=== PATIENT | female | born 1965 | race Caucasian/White ===

== ENCOUNTER 2017-02-09 15:21 | Observation (INO) | payer BC, OTHER ==
[2017-02-09] MEDS ORDERED: ASPIRIN 81 MG CHEW PO STA (16:07)
[2017-02-09] MEDS ORDERED: NITROGLYCERIN OINT 1 INCH/GM PACKET TOPICAL STA (16:07)
--- NOTE | 2017-02-09 16:10 | ED ---
General Adult HPI - General Chief complaint: Chest Pain Stated complaint: chest pain Time Seen by Provider: 02/09/17 15:37 Source: patient, RN notes reviewed Mode of arrival: ambulatory Limitations: no limitations - History of Present Illness Initial comments: Patient is a pleasant 51-year-old female presenting to the emergency department complaining of chest discomfort. Onset was late this morning. Symptoms have been intermittent. Symptoms last for a few minutes. Patient symptom-free at this time. He should states discomfort feels like a pinch. No associated diaphoresis or dyspnea. Patient has been slightly nauseated throughout the day. Patient has had previous heart attack with out similar symptoms. No cough or fever - Related Data Home Medications Medication Instructions Recorded Confirmed Aspirin 81 mg PO DAILY 04/01/15 02/09/17 Fenofibrate [Tricor] 160 mg PO DAILY 04/01/15 02/09/17 Levothyroxine Sodium [Synthroid] 112 mcg PO DAILY 04/01/15 02/09/17 Metoprolol Tartrate [Lopressor] 25 mg PO BID 04/01/15 02/09/17 metFORMIN HCL 1,000 mg PO BID 04/01/15 02/09/17 Atorvastatin Calcium [Lipitor] 80 mg PO HS 02/09/17 02/09/17 Dulaglutide [Trulicity] 1.5 mg SQ MO 02/09/17 02/09/17 Sulfamethox-Tmp 800-160Mg [Bactrim 1 tab PO BID 02/09/17 02/09/17 DS 800-160 mg] Allergies Allergy/AdvReac Type Severity Reaction Status Date / Time erythromycin base Allergy Rash/Hives Verified 02/09/17 16:02 Sulfa (Sulfonamide Allergy Rash/Hives Verified 02/09/17 16:02 Antibiotics) Review of Systems ROS Statement: Those systems with pertinent positive or pertinent negative responses have been documented in the HPI. ROS Other: All systems not noted in ROS Statement are negative. Constitutional: Denies: fever Eyes: Denies: eye pain ENT: Denies: ear pain Respiratory: Denies: cough, dyspnea Cardiovascular: Reports: chest pain Endocrine: Denies: polydipsia Gastrointestinal: Reports: nausea. Denies: abdominal pain Genitourinary: Denies: urgency Musculoskeletal: Denies: back pain Skin: Denies: rash Neurological: Denies: weakness Past Medical History Past Medical History: Diabetes Mellitus, Hypertension, Myocardial Infarction ([place] ), Thyroid Disorder History of Any Multi-Drug Resistant Organisms: None Reported Past Surgical History: Coronary Bypass/CABG, Heart Catheterization With Stent, Hysterectomy, Tonsillectomy Past Psychological History: No Psychological Hx Reported Smoking Status: Former smoker Past Alcohol Use History: Occasional Past Drug Use History: None Reported General Exam Limitations: no limitations General appearance: alert, in no apparent distress Head exam: Present: atraumatic Eye exam: Present: normal appearance, PERRL ENT exam: Present: normal oropharynx Neck exam: Present: normal inspection Respiratory exam: Present: normal lung sounds bilaterally. Absent: chest wall tenderness Cardiovascular Exam: Present: regular rate, normal rhythm Expanded Peripheral pulses: 2+: Radial (R), Radial (L), Dorsalis Pedis (R), Dorsalis Pedis (L) GI/Abdominal exam: Present: soft. Absent: tenderness Extremities exam: Present: normal inspection. Absent: pedal edema, calf tenderness Neurological exam: Present: alert Psychiatric exam: Present: normal affect, normal mood Skin exam: Present: normal color Course Vital Signs 02/09/17 02/09/17 15:24 17:50 Temperature 98 F Pulse Rate 74 70 Respiratory 16 17 Rate Blood Pressure 186/94 147/77 O2 Sat by Pulse 99 98 Oximetry EKG Findings - EKG Comments: EKG Findings:: Sinus rhythm at 74. Normal intervals. Normal axis. Normal QRS. Normal ST-T. Medical Decision Making - Medical Decision Making Updated on results and plan. Case discussed with Dr. Allen, who will admit for Dr. Hobbs. He is familiar with this patient. - Lab Data Result diagrams: 02/09/17 15:53 02/09/17 15:53 Lab Results 02/09/17 02/09/17 02/09/17 Range/Units 15:53 15:53 15:53 WBC 10.8 H (3.8-10.6) k/uL RBC 4.51 (3.80-5.40) m/uL Hgb 13.0 (11.4-16.0) gm/dL Hct 38.0 (34.0-46.0) % MCV 84.4 (80.0-100.0) fL MCH 28.8 (25.0-35.0) pg MCHC 34.1 (31.0-37.0) g/dL RDW 13.2 (11.5-15.5) % Plt Count 287 (150-450) k/uL Neutrophils % 71 % Lymphocytes % 17 % Monocytes % 6 % Eosinophils % 2 % Basophils % 1 % Neutrophils # 7.7 (1.3-7.7) k/uL Lymphocytes # 1.8 (1.0-4.8) k/uL Monocytes # 0.6 (0-1.0) k/uL Eosinophils # 0.2 (0-0.7) k/uL Basophils # 0.1 (0-0.2) k/uL PT (9.0-12.0) sec INR (<1.1) APTT (22.0-30.0) sec Sodium 136 L (137-145) mmol/L Potassium 4.8 (3.5-5.1) mmol/L Chloride 103 (98-107) mmol/L Carbon Dioxide 20 L (22-30) mmol/L Anion Gap 13 mmol/L BUN 16 (7-17) mg/dL Creatinine 0.99 (0.52-1.04) mg/dL Est GFR (MDRD) Af Amer >60 (>60 ml/min/1.73 sqM) Est GFR (MDRD) Non-Af 59 (>60 ml/min/1.73 sqM) Glucose 186 H (74-99) mg/dL Calcium 10.3 H (8.4-10.2) mg/dL Magnesium 1.9 (1.6-2.3) mg/dL Total Bilirubin 0.6 (0.2-1.3) mg/dL AST 26 (14-36) U/L ALT 30 (9-52) U/L Alkaline Phosphatase 73 (38-126) U/L Total Creatine Kinase 48 (30-135) U/L CK-MB (CK-2) 0.3 (0.0-2.4) ng/mL CK-MB (CK-2) Rel Index 0.6 Troponin I <0.012 (0.000-0.034) ng/mL Total Protein 8.0 (6.3-8.2) g/dL Albumin 4.5 (3.5-5.0) g/dL 02/09/17 Range/Units 15:53 WBC (3.8-10.6) k/uL RBC (3.80-5.40) m/uL Hgb (11.4-16.0) gm/dL Hct (34.0-46.0) % MCV (80.0-100.0) fL MCH (25.0-35.0) pg MCHC (31.0-37.0) g/dL RDW (11.5-15.5) % Plt Count (150-450) k/uL Neutrophils % % Lymphocytes % % Monocytes % % Eosinophils % % Basophils % % Neutrophils # (1.3-7.7) k/uL Lymphocytes # (1.0-4.8) k/uL Monocytes # (0-1.0) k/uL Eosinophils # (0-0.7) k/uL Basophils # (0-0.2) k/uL PT 10.4 (9.0-12.0) sec INR 1.0 (<1.1) APTT 23.4 (22.0-30.0) sec Sodium (137-145) mmol/L Potassium (3.5-5.1) mmol/L Chloride (98-107) mmol/L Carbon Dioxide (22-30) mmol/L Anion Gap mmol/L BUN (7-17) mg/dL Creatinine (0.52-1.04) mg/dL Est GFR (MDRD) Af Amer (>60 ml/min/1.73 sqM) Est GFR (MDRD) Non-Af (>60 ml/min/1.73 sqM) Glucose (74-99) mg/dL Calcium (8.4-10.2) mg/dL Magnesium (1.6-2.3) mg/dL Total Bilirubin (0.2-1.3) mg/dL AST (14-36) U/L ALT (9-52) U/L Alkaline Phosphatase (38-126) U/L Total Creatine Kinase (30-135) U/L CK-MB (CK-2) (0.0-2.4) ng/mL CK-MB (CK-2) Rel Index Troponin I (0.000-0.034) ng/mL Total Protein (6.3-8.2) g/dL Albumin (3.5-5.0) g/dL - Radiology Data Radiology results: image reviewed (Chest x-ray shows no acute process.) Critical Care Time Critical Care Time: Yes Total Critical Care Time: 31 Disposition Clinical Impression: Unstable angina pectoris Disposition: ADMITTED IP TO THIS HOSP Referrals: Jaya Hobbs MD [Primary Care Provider] - 1-2 days Time of Disposition: 18:27
[2017-02-09 16:22] LABS: Basophils # (A) 0.1 k/uL (0-0.2); Basophils % (A) 1 %; CH 28.2; CHCM 33.6; Eosinophils # (A) 0.2 k/uL (0-0.7); Eosinophils % (A) 2 %; HDW 2.49; Luc # (Auto) 0.33; Luc % (Auto) 3; Lymphocytes # (A) 1.8 k/uL (1.0-4.8); Lymphocytes % (A) 17 %; MCH 28.8 pg (25.0-35.0); MCHC 34.1 g/dL (31.0-37.0); MCV 84.4 fL (80.0-100.0); Mean Platelet Volume 7.5; Monocytes # (A) 0.6 k/uL (0-1.0); Monocytes % (A) 6 %; Neutrophils # (A) 7.7 k/uL (1.3-7.7); Neutrophils % (A) 71 %; RBC 4.51 m/uL (3.80-5.40); RDW 13.2 % (11.5-15.5); WBC 10.8 k/uL (3.8-10.6); WBC (Perox) 10.71
[2017-02-09 16:32] LABS: ALT 30 U/L (9-52); AST 26 U/L (14-36); Alkaline Phosphatase 73 U/L (38-126); Anion Gap 13 mmol/L; Blood Urea Nitrogen 16 mg/dL (7-17); Calcium 10.3 mg/dL (8.4-10.2); Carbon Dioxide 20 mmol/L (22-30); Chloride 103 mmol/L (98-107); Glucose 186 mg/dL (74-99); Magnesium 1.9 mg/dL (1.6-2.3); Non-African American GFR(MDRD) 59 (>60 ml/min/1.73 sqM); Sodium 136 mmol/L (137-145); Total Bilirubin 0.6 mg/dL (0.2-1.3)
[2017-02-09 16:34] LABS: Partial Thromboplastin Time 23.4 sec (22.0-30.0); Prothrombin Time 10.4 sec (9.0-12.0)
[2017-02-09 16:35] LABS: Potassium 4.8 mmol/L (3.5-5.1)
[2017-02-09 16:49] LABS: Creatine Kinase 48 U/L (30-135)
[2017-02-09 17:02] LABS: Creatine Kinase MB 0.3 ng/mL (0.0-2.4); Troponin I <0.012 ng/mL (0.000-0.034)
--- NOTE | 2017-02-09 17:09 | XR ---
EXAMINATION TYPE: XR chest 2V DATE OF EXAM: 02/09/2017 COMPARISON: 06/09/2013 HISTORY: Chest pain TECHNIQUE: Frontal and lateral views of the chest are obtained. FINDINGS: Heart is normal. Lungs are clear of consolidation. There are no hilar masses. There are ch est leads. There are sternal wires. Costophrenic angles are clear. IMPRESSION: No active cardiopulmonary disease. There is clearing of the heart failure and pleural fl uid compared to old exam.
[2017-02-09] MEDS ORDERED: NITROGLYCERIN SL TABS 0.4 MG TAB SUBLINGUAL PRN (18:27)
[2017-02-09] MEDS ORDERED: HEPARIN SODIUM,PORCINE 5,000 UNIT/ML 1 ML VIAL IV ONE (18:27)
[2017-02-09] MEDS ORDERED: HEPARIN SODIUM,PORCINE/D5W PMX 25,000 UNIT in DEXTROSE/WATER 1 500ML.BAG IV SCH (18:30)
[2017-02-09 20:19] LABS: Glucose,Whole Blood 175 mg/dL (75-99)
[2017-02-09] MEDS: NITROGLYCERIN OINT 1 INCH/GM PACKET TOPICAL SCH (23:08)
[2017-02-09 23:28] LABS: Creatine Kinase 32 U/L (30-135)
[2017-02-09] MEDS: HEPARIN SODIUM,PORCINE 5,000 UNIT/ML 1 ML VIAL IV PRN (23:39)
[2017-02-09 23:42] LABS: Creatine Kinase MB 0.4 ng/mL (0.0-2.4); Troponin I <0.012 ng/mL (0.000-0.034)
[2017-02-10] MEDS: NITROGLYCERIN OINT 1 INCH/GM PACKET TOPICAL SCH (05:31)
[2017-02-10 05:49] LABS: Mean Platelet Volume 7.6
[2017-02-10 06:00] LABS: Cholesterol 178 mg/dL (<200); HDL Cholesterol 39 mg/dL (40-60); Triglycerides 370 mg/dL (<150)
[2017-02-10] MEDS: HEPARIN SODIUM,PORCINE 5,000 UNIT/ML 1 ML VIAL IV PRN (06:03)
[2017-02-10 06:22] LABS: Creatine Kinase 32 U/L (30-135)
[2017-02-10] MEDS ORDERED: LEVOTHYROXINE 112 MCG TAB PO SCH (06:30)
[2017-02-10 06:35] LABS: Creatine Kinase MB 0.4 ng/mL (0.0-2.4); Troponin I <0.012 ng/mL (0.000-0.034)
[2017-02-10 07:21] LABS: Glucose,Whole Blood 152 mg/dL (75-99)
[2017-02-10] MEDS ORDERED: METOPROLOL TARTRATE 25 MG TAB PO SCH (09:00)
[2017-02-10] MEDS ORDERED: SULFAMETHOX-TMP 800-160MG 1 EACH TAB PO SCH (09:00)
[2017-02-10] MEDS ORDERED: FENOFIBRATE 160 MG TAB PO SCH (09:00)
[2017-02-10] MEDS ORDERED: DOBUTamine DRIP for NUC MED 500 MG in DEXTROSE/WATER 1 250ML.BAG IV ONE (09:00)
[2017-02-10] MEDS ORDERED: ASPIRIN 325 MG TAB PO SCH (09:00)
[2017-02-10] MEDS ORDERED: metFORMIN 500 MG TAB PO SCH (09:00)
--- NOTE | 2017-02-10 09:23 | CONS ---
DATE OF CONSULTATION: CHIEF COMPLAINT: Chest pain. Zeynep is a 51-year-old lady with history of coronary artery disease, status post CABG who presents to the hospital having had an episode of chest pain at work. She describes it as a multiple sharp precordial pains that feels more like twinges than real pain or pressure. By the time she came to the ER, her symptoms have resolved. At the time of my evaluation, she is comfortable at rest and is free of symptoms. EKG does not reveal acute ischemic changes. Three sets of cardiac enzymes are negative. Her past medical history is significant for coronary artery disease, status post CABG, hypothyroidism, dyslipidemia, and [id number] diabetes. She is currently on metformin 1000 b.i.d., Bactrim, Lopressor 25 b.i.d. Synthroid, TriCor, Trulicity, Lipitor and aspirin. Allergic to ERYTHROMYCIN and SULFA. Family history is negative for premature coronary artery disease. Social history is negative for current smoking, EtOH abuse or drug abuse. REVIEW OF SYSTEMS: HEENT: Unremarkable. CARDIAC: As described above. RESPIRATORY: Negative. GI: Negative. GENITOURINARY: Negative. ALLERGY/IMMUNOLOGY: Negative. SKIN: Negative. MUSCULOSKELETAL: Negative. ENDOCRINE: Negative. HEMATOLOGIC: Negative. DERMATOLOGIC: Negative. CONSTITUTIONAL: Negative. ONCOLOGICAL: Negative. The rest of the system review is not relevant. On exam, comfortable at rest, afebrile. Vital signs are stable. There is no jugular venous distention. Carotid upstroke is normal. There is no bruit. Chest exam reveals good air entry bilaterally. Heart exam reveals first and second heart sounds. No gallop. No murmur, no rub. Abdomen is soft, nontender. Exam of extremities did not reveal any edema. Peripheral pulses are felt. [employer] exam did not reveal focal neurological deficits. EKG shows sinus rhythm, normal axis, normal intervals. Three sets of cardiac enzymes are negative. ASSESSMENT: 1. Precordial chest pain. It is sharp and atypical. 2. Coronary artery disease, status post coronary artery bypass graft. 3. Dyslipidemia. 4. Hst-vpjliyp-ektqgfhtl diabetes. PLAN: I am going to schedule her for a dobutamine echo. If this is abnormal, I will do cardiac catheterization. If not, she will be discharged home.
[2017-02-10] MEDS ORDERED: METOPROLOL TARTRATE 5 MG/5 ML VIAL IVP ONE (09:32)
[2017-02-10] MEDS ORDERED: ATROPINE SULFATE 0.1 MG/ML 10ML SYRINGE ONE (09:32)
[2017-02-10 09:45] VITALS: BMI 28.5
[2017-02-10 12:04] LABS: Glucose,Whole Blood 186 mg/dL (75-99)
[2017-02-10 12:16] VITALS: RESP 16
--- NOTE | 2017-02-10 14:28 | ECHOS ---
DATE OF SERVICE: 02/10/2017 AGE: 51Y SEX: F HT: 60 WT: 146 lbs. Protocol Ankur: Others: Dobutamine stress echo Stage: Dur. of Exercise: *Heart Rate Blood Pressure *Rest: 72 Rest: 117/74 * *Max. Achieved: 170 Maximum BP: 205/87 85% PMHR: 142 100% PMHR: 165 *METS: INDICATION OF THE STUDY: Chest pain. MEDICATIONS: STRESS DATA: Pretesting physical examination showed heart rate of 72, pressure is 117/74 mmHg. Baseline EKG shows sinus rhythm. ( ) dobutamine infusion at a dose of 10 mcg/kg per minute was initiated and increased to 20 mcg/kg per minute. We gave the patient 1 mg of atropine to enhance the heart rate. With dobutamine and atropine, the patient achieved a max heart rate of 170, which is 100% of maximum predicted heart rate. Maximum blood pressure was 205/87 mmHg. Clinically, the patient did not have any symptoms of chest pain or discomfort, but she has about 1 mm horizontal and downsloping ST segment changes, which was better on recovery. ECHOCARDIOGRAM IMAGES: On echocardiogram images from parasternal long axis view, parasternal short axis view, apical 4 chamber view and apical 2 chamber view were obtained at the baseline images, at low-dose dobutamine infusion, at peak heart rate as well as on recovery. The echocardiogram images showed overall good augmentation in the left ventricular systolic function without any obvious wall motion abnormalities consistent with ischemia. CONCLUSION: 1. Mild EKG changes in response to dobutamine. 2. Normal echocardiogram in response to dobutamine.
--- NOTE | 2017-02-10 16:04 | P.DS ---
Providers Date of admission: 02/09/17 18:30 Expected date of discharge: 02/10/17 Attending physician: Antonio Delgado Consults: 02/09/17 18:27 Consult Physician Urgent Consulting Provider: Samuel José Consult Reason/Comments: ua Do you want consulting provider notified?: Yes Primary care physician: Jaya Faby [facility] Course: stress test ,normal Patient Condition at Discharge: Good Plan - Discharge Summary New Discharge Prescriptions: No Action Metoprolol Tartrate [Lopressor] 25 mg PO BID Levothyroxine Sodium [Synthroid] 112 mcg PO DAILY Fenofibrate [Tricor] 160 mg PO DAILY Aspirin 81 mg PO DAILY metFORMIN HCL 1,000 mg PO BID Sulfamethox-Tmp 800-160Mg [Bactrim DS 800-160 mg] 1 tab PO BID Atorvastatin Calcium [Lipitor] 80 mg PO HS Dulaglutide [Trulicity] 1.5 mg SQ MO Discharge Medication List Aspirin 81 mg PO DAILY 04/01/15 [History] Fenofibrate [Tricor] 160 mg PO DAILY 04/01/15 [History] Levothyroxine Sodium [Synthroid] 112 mcg PO DAILY 04/01/15 [History] Metoprolol Tartrate [Lopressor] 25 mg PO BID 04/01/15 [History] metFORMIN HCL 1,000 mg PO BID 04/01/15 [History] Atorvastatin Calcium [Lipitor] 80 mg PO HS 02/09/17 [History] Dulaglutide [Trulicity] 1.5 mg SQ MO 02/09/17 [History] Sulfamethox-Tmp 800-160Mg [Bactrim DS 800-160 mg] 1 tab PO BID 02/09/17 [History ] Follow up Appointment(s)/Referral(s): Jaya Hobbs MD [Primary Care Provider] - 1-2 days Samuel José MD [STAFF PHYSICIAN] - 02/24/17 12:00 pm
[2017-02-10 16:17] VITALS: BP 122/74; PULSE 80; TEMP 98.2
[2017-02-10] MEDS ORDERED: ATORVASTATIN 80 MG TAB PO SCH (21:00)
[2017-02-13] MEDS ORDERED: NON-FORMULARY DRUG (Dulaglutide [Trulicity] 1.5 MG) SQ SCH (09:00)
== END 2017-02-10 16:28 | disposition home or self-care (01) ==
LOC: EC 15:21 → 3OBS 18:30
PROVIDERS: ADMIT Family Medicine; ATTEND Family Medicine
DX: R07.2 Precordial pain (principal); I25.10 Atherosclerotic heart disease of native coronary artery without angina pectoris; E78.5 Hyperlipidemia, unspecified; E11.9 Type 2 diabetes mellitus without complications; E03.9 Hypothyroidism, unspecified; I10 Essential (primary) hypertension; I25.2 Old myocardial infarction; Z79.82 Long term (current) use of aspirin; Z79.899 Other long term (current) drug therapy; Z79.84 Long term (current) use of oral hypoglycemic drugs; Z88.2 Allergy status to sulfonamides; Z88.1 Allergy status to other antibiotic agents; Z95.5 Presence of coronary angioplasty implant and graft; Z95.1 Presence of aortocoronary bypass graft; Z87.891 Personal history of nicotine dependence
CPT/HCPCS: 99291; 96376 ×4; 96365; 96366 ×2; 36415; 93005; 93017; 93350; 80061; 80053; 82550 ×2; 82553 ×2; 83735; 84484 ×2; 85025; 85049; 85610; 85730 ×2; 71020; G0378 ×2; J1250; J1644 ×3; J0461

== ENCOUNTER → 2017-11-06 | Outpatient (CLI) | payer BC ==
[2017-11-06 07:53] LABS: Basophils # (A) 0.1 k/uL (0-0.2); Basophils % (A) 1 %; Eosinophils # (A) 0.3 k/uL (0-0.7); Eosinophils % (A) 3 %; HCT 43.3 % (34.0-46.0); HGB 13.5 gm/dL (11.4-16.0); Lymphocytes # (A) 2.4 k/uL (1.0-4.8); Lymphocytes % (A) 29 %; MCH 27.2 pg (25.0-35.0); MCHC 31.1 g/dL (31.0-37.0); MCV 87.6 fL (80.0-100.0); Mean Platelet Volume 7.9; Monocytes # (A) 0.6 k/uL (0-1.0); Monocytes % (A) 8 %; Neutrophils # (A) 4.6 k/uL (1.3-7.7); Neutrophils % (A) 56 %; Platelet Count 364 k/uL (150-450); RBC 4.94 m/uL (3.80-5.40); RDW 13.5 % (11.5-15.5); WBC 8.1 k/uL (3.8-10.6)
[2017-11-06 08:23] LABS: ALT 22 U/L (9-52); AST 19 U/L (14-36); Albumin 4.6 g/dL (3.5-5.0); Alkaline Phosphatase 85 U/L (38-126); Anion Gap 14 mmol/L; Blood Urea Nitrogen 19 mg/dL (7-17); Calcium 10.2 mg/dL (8.4-10.2); Carbon Dioxide 24 mmol/L (22-30); Chloride 100 mmol/L (98-107); Cholesterol 150 mg/dL (<200); Glucose 231 mg/dL (74-99); HDL Cholesterol 44 mg/dL (40-60); LDL Cholesterol,Calculated 49 mg/dL (0-99); Potassium 4.3 mmol/L (3.5-5.1); Sodium 138 mmol/L (137-145); Total Bilirubin 0.4 mg/dL (0.2-1.3); Triglycerides 283 mg/dL (<150)
[2017-11-06 09:28] LABS: T4, Free (Free Thyroxine) 0.49 ng/dL (0.78-2.19)
== END | disposition home or self-care (01) ==
LOC: LABWHC1 07:21
PROVIDERS: ATTEND Family Medicine
DX: E11.65 Type 2 diabetes mellitus with hyperglycemia (principal); E78.2 Mixed hyperlipidemia
CPT/HCPCS: 36415; 80053; 80061; 84439; 84443; 85025; 86803

== ENCOUNTER 2018-08-24 07:39 | Day surgery (SDC) | payer BC ==
[2018-08-21 15:44] VITALS: BMI 27.3
[~2018-08-24 07:39] MED LIST: LACTATED RINGERS 1,000 ML IV SCH
[2018-08-24 08:04] VITALS: TEMP 97.7
[2018-08-24 08:10] LABS: Glucose,Whole Blood 120 mg/dL (75-99)
[2018-08-24] MEDS ORDERED: LIDOCAINE 1% 20 ML VIAL (10MG/ML) FOR IV START INTRADERMA ONE (08:13)
[2018-08-24] MEDS ORDERED: LIDOCAINE 1% INJ 10MG/ML (20 ML MDV) ONE (08:26)
[2018-08-24] MEDS ORDERED: PROPOFOL 10 MG/ML 20 ML VIAL IV ONE (08:26)
--- NOTE | 2018-08-24 08:30 | P.GSHP ---
History of Present Illness H&P Date: 08/24/18 Chief Complaint: Colon cancer screening Patient here today for colonoscopy. Last colonoscopy approximately 10 years ago. Patient believes she had colon polyps at that time., History of colon cancer in her grandfather. No bowel complaints. Past Medical History Past Medical History: Diabetes Mellitus, Hyperlipidemia, Hypertension, Myocardial Infarction ([place]), Thyroid Disorder Last Myocardial Infarction Date:: 2012 History of Any Multi-Drug Resistant Organisms: None Reported Past Surgical History: Coronary Bypass/CABG, Heart Catheterization With Stent, Hysterectomy, Tonsillectomy Additional Past Surgical History / Comment(s): COLONOSCOPY Past Anesthesia/Blood Transfusion Reactions: No Reported Reaction Date of Last Stent Placement:: 2013 Smoking Status: Former smoker - Past Family History Mother Family Medical History: Coronary Artery Disease (CAD), Myocardial Infarction ([place] ) Father Family Medical History: No Reported History Sister(s) Family Medical History: No Reported History Brother(s) Family Medical History: No Reported History Son(s) Family Medical History: No Reported History Medications and Allergies Home Medications Medication Instructions Recorded Confirmed Type Aspirin 81 mg PO HS 04/01/15 08/21/18 History Fenofibrate [Tricor] 160 mg PO DAILY 04/01/15 08/24/18 History Metoprolol Tartrate [Lopressor] 25 mg PO BID 04/01/15 08/21/18 History metFORMIN HCL 1,000 mg PO BID 04/01/15 08/24/18 History Atorvastatin Calcium [Lipitor] 80 mg PO HS 02/09/17 08/24/18 History Insulin Degludec/Liraglutide 20 unit SQ HS 08/21/18 08/24/18 History [Xultophy 100 Unit-3.6MG/ml Pen] Levothyroxine Sodium [Synthroid] 150 mcg PO DAILY 08/21/18 08/21/18 History Allergies Allergy/AdvReac Type Severity Reaction Status Date / Time erythromycin base Allergy Rash/Hives Verified 08/21/18 15:38 Sulfa (Sulfonamide Allergy Rash/Hives Verified 08/21/18 15:38 Antibiotics) Surgical - Exam Vital Signs Temp Pulse Resp BP Pulse Ox 97.7 F 76 16 174/85 96 08/24/18 08:03 08/24/18 08:03 08/24/18 08:03 08/24/18 08:03 08/24/18 08:03 Physical exam: General: Well-developed, well-nourished HEENT: Normocephalic, sclerae nonicteric Abdomen: Nontender, nondistended Extremities: No edema Neuro: Alert and oriented Results - Labs Abnormal Lab Results - Last 24 Hours (Table) 08/24/18 Range/Units 08:00 POC Glucose (mg/dL) 120 H (75-99) mg/dL Assessment and Plan (1) Colon cancer screening Narrative/Plan: Will proceed with colonoscopy at this time Current Visit: Yes Status: Acute Code(s): Z12.11 - ENCOUNTER FOR SCREENING FOR MALIGNANT NEOPLASM OF COLON SNOMED Code(s): 650692514
--- NOTE | 2018-08-24 08:47 | P.PCN ---
Date of Procedure: 08/24/18 Procedure(s) Performed: PREOPERATIVE DIAGNOSIS: Colon cancer screening POSTOPERATIVE DIAGNOSIS: Ascending colon polyp, diverticulosis PROCEDURE: Colonoscopy snare polypectomy ANESTHESIA: MAC SURGEON: Laz Webber M.D. SPECIMENS: Ascending colon polyp ENDOSCOPIC PROCEDURE: The patient was placed on the endoscopy table in the left decubitus position. The Olympus colonoscope was inserted into the anus and passed under direct visualization to the base of the cecum. The appendiceal orifice was visualized. From that point the scope was slowly withdrawn inspecting all surfaces carefully. There were no neoplastic inflammatory or polypoid lesions throughout the cecum. In the ascending colon a evacuated polyp was removed using the snare with cautery technique. This measured approximate 7 mm in size. The remainder of the ascending, transverse, descending, sigmoid and rectum appeared normal. There was mild diverticulosis left colon. Digital rectal examination was normal. The patient was taken to the recovery room in stable condition per anesthesia guidelines. RECOMMENDATIONS: Await biopsy results. Anticipate follow-up colonoscopy 5 years
[2018-08-24 08:53] VITALS: RESP 18
[2018-08-24 09:14] VITALS: BP 165/84
[2018-08-24 09:43] VITALS: PULSE 71
[2018-08-24 09:45] LABS: Glucose,Whole Blood 111 mg/dL (75-99)
== END 2018-08-24 10:00 | disposition home or self-care (01) ==
LOC: ORWHC2ENDO 07:39
PROVIDERS: ATTEND Surgery
DX: Z12.11 Encounter for screening for malignant neoplasm of colon (principal); D12.2 Benign neoplasm of ascending colon; K57.30 Diverticulosis of large intestine without perforation or abscess without bleeding; E11.9 Type 2 diabetes mellitus without complications; Z79.4 Long term (current) use of insulin; Z80.0 Family history of malignant neoplasm of digestive organs; I25.10 Atherosclerotic heart disease of native coronary artery without angina pectoris; E78.5 Hyperlipidemia, unspecified; I10 Essential (primary) hypertension; I25.2 Old myocardial infarction; Z95.1 Presence of aortocoronary bypass graft; Z95.5 Presence of coronary angioplasty implant and graft; E07.9 Disorder of thyroid, unspecified; Z87.891 Personal history of nicotine dependence; Z82.49 Family history of ischemic heart disease and other diseases of the circulatory system; Z79.82 Long term (current) use of aspirin; Z79.890 Hormone replacement therapy; Z79.899 Other long term (current) drug therapy; Z88.1 Allergy status to other antibiotic agents; Z88.2 Allergy status to sulfonamides
CPT/HCPCS: 88305; 45385; J2001; J2704

== ENCOUNTER → 2019-05-17 | Outpatient (CLI) | payer BC ==
--- NOTE | 2019-05-17 10:39 | US ---
EXAMINATION TYPE: US abdomen complete DATE OF EXAM: 05/17/2019 COMPARISON: US of 03/11/2016 CLINICAL HISTORY: R10.31 Rt lower quadrant Pain. Pelvic pain x couple weeks EXAM MEASUREMENTS: Liver Length: 17.1 cm Gallbladder Wall: 0.1 cm CBD: 0.3 cm Spleen: 9.4 cm Right Kidney: 11.3 x 4.6 x 5.2 cm Left Kidney: 10.8 x 4.8 x 5.9 cm Pancreas: visualized portions wnl, tail limited by overlying midline bowel gas Liver: measures in upper limits of normal, mildly heterogeneous with 1.8 x 1.2 x 1.6cm hypoechoic ar ea adjacent to gallbladder, possible focal sparring Gallbladder: wnl Evidence for sonographic Guidry's sign: no CBD: wnl Spleen: wnl Right Kidney: wnl Left Kidney: wnl Upper IVC: wnl Abd Aorta: wnl The liver is heterogenous The intrahepatic portion of the IVC and proximal abdominal aorta are within normal limits. There is no evidence of cholelithiasis. Common bile duct is unremarkable. The visu alized portions of the pancreas are homogenous. The spleen is unremarkable. Kidneys are symmetric a nd free of hydronephrosis. No renal lesions are seen. IMPRESSION: Hepatic echotexture displays findings most commonly related to very mild degree hepatic s teatosis with hypoechoic area near the gallbladder fossa, most commonly related to focal fatty sparin g. This could be confirmed with three-phase CT abdomen as it is not definitively seen on the prior ga llbladder ultrasound dated 03/11/2016.
--- NOTE | 2019-05-17 10:43 | US ---
EXAMINATION TYPE: US pelvic complete DATE OF EXAM: 05/17/2019 COMPARISON: NONE CLINICAL HISTORY: R10.31 Rt lower quadrant Pain. Pelvic pain x couple weeks, 3, para 3, histo ry of partial hysterectomy 20 years ago, tubal ligation. TECHNIQUE: Transabdominal sonographic images of the pelvis were acquired. Transvaginal sonographic i mages were medically necessary to better assess the following anatomy: ovaries Date of LMP: 20 years ago EXAM MEASUREMENTS: Uterus: surgically absent Endometrial Stripe: surgically absent Right Ovary: not seen Left Ovary: not seen 1. Uterus: surgically absent 2. Endometrium: surgically absent 3. Right Ovary: not seen due to overlying bowel 4. Left Ovary: not seen due to overlying bowel 5. Bilateral Adnexa: wnl 6. Posterior cul-de-sac: wnl IMPRESSION: The uterus is surgically absent and the ovaries are not seen due to overlying bowel gas.
== END | disposition home or self-care (01) ==
LOC: RADUSWWP 08:51
PROVIDERS: ATTEND Family Medicine
DX: R93.2 Abnormal findings on diagnostic imaging of liver and biliary tract (principal); R10.31 Right lower quadrant pain; Z88.2 Allergy status to sulfonamides; Z88.1 Allergy status to other antibiotic agents; Z90.710 Acquired absence of both cervix and uterus
CPT/HCPCS: 76700; 76830; 76856

== ENCOUNTER → 2019-10-15 | Outpatient (CLI) | payer BC ==
[2019-10-15 08:06] LABS: Basophils # (A) 0.2 k/uL (0-0.2); Basophils % (A) 2 %; Eosinophils # (A) 0.3 k/uL (0-0.7); Eosinophils % (A) 4 %; HCT 44.7 % (34.0-46.0); HGB 14.2 gm/dL (11.4-16.0); Lymphocytes # (A) 2.3 k/uL (1.0-4.8); Lymphocytes % (A) 28 %; MCH 28.1 pg (25.0-35.0); MCHC 31.8 g/dL (31.0-37.0); MCV 88.3 fL (80.0-100.0); Mean Platelet Volume 7.7; Monocytes # (A) 0.6 k/uL (0-1.0); Monocytes % (A) 7 %; Neutrophils # (A) 4.8 k/uL (1.3-7.7); Neutrophils % (A) 57 %; Platelet Count 406 k/uL (150-450); RBC 5.06 m/uL (3.80-5.40); RDW 14.1 % (11.5-15.5); WBC 8.4 k/uL (3.8-10.6)
[2019-10-15 11:50] LABS: Urine Creatinine 98.6 mg/dL
[2019-10-15 11:54] LABS: African American GFR (CKD) 58.5 (60.0-200.0); Albumin 4.5 g/dL (3.80-4.90); Albumin/Globulin Ratio 1.67 (1.60-3.17); Anion Gap 6.4 mmol/L (4.00-12.00); BUN/Creat Ratio 9.17 Ratio (12.00-20.00); Calcium 9.4 mg/dL (8.7-10.3); Carbon Dioxide 26.6 mmol/L (21.6-31.8); Chol/HDL Ratio 3.55; Globulin 2.7 g/dL (1.6-3.3); Non-African American GFR(CKD) 50.5 (60.0-200.0); Potassium 4.4 mmol/L (3.5-5.5); Total Bilirubin 0.3 mg/dL (0.3-1.2); Total Protein 7.2 g/dL (6.2-8.2)
[2019-10-15 13:28] LABS: Hemoglobin A1C 7.8 % (4.0-6.0)
== END | disposition home or self-care (01) ==
LOC: LABWHC1 07:37
PROVIDERS: ATTEND Family Medicine
DX: E11.9 Type 2 diabetes mellitus without complications (principal); I10 Essential (primary) hypertension; R30.0 Dysuria; E78.2 Mixed hyperlipidemia; D50.9 Iron deficiency anemia, unspecified
CPT/HCPCS: 36415; 80053; 80061; 82043; 82570; 83036; 85025; 87077; 87086; 87186

== ENCOUNTER 2024-09-26 13:07 | Observation (INO) | payer BC ==
--- NOTE | 2024-09-26 13:25 | ED ---
General Adult HPI - General Source: patient Mode of arrival: ambulatory Limitations: no limitations <Manjeet Luz - Last Filed: 09/26/24 14:47> <Dayton Mayer - Last Filed: 09/26/24 19:52> - General Chief complaint: Back Pain/Injury Stated complaint: R arm pain Time Seen by Provider: 09/26/24 13:17 - History of Present Illness Initial comments: Dictation was produced using [employer] dictation software. please excuse any grammatical, word or spelling errors. Chief Complaint: 59-year-old female presents with shoulder pain History of Present Illness: Patient 59-year-old female presents emergency department with right shoulder pain states that it originates in the scapula on causes tingling in the right upper extremity. Denies any nausea or diaphoresis. Patient has a history of heart attack that was in her left shoulder in the past. Patient went to an urgent care yesterday states that she had an x-ray was found to be unremarkable she was then discharged. The ROS documented in this emergency department record has been reviewed and confirmed by me. Those systems with pertinent positive or negative responses have been documented in the HPI. All other systems are other negative and/or noncontributory. (Manjeet Luz) - Related Data Home Medications Medication Instructions Recorded Confirmed Aspirin 81 mg PO DAILY 04/01/15 09/26/24 Metoprolol Tartrate [Lopressor] 25 mg PO BID 04/01/15 09/26/24 Atorvastatin Calcium [Lipitor] 80 mg PO HS 02/09/17 09/26/24 Ascorbic Acid [Vitamin C] 1,000 mg PO DAILY 09/26/24 09/26/24 Cholecalciferol [Vitamin D3 (25 100 mcg PO DAILY 09/26/24 09/26/24 Mcg = 1000 Iu)] Fenofibrate [Lofibra] 160 mg PO DAILY 09/26/24 09/26/24 Insulin Glargine/Lixisenatide 40 units SQ DAILY 09/26/24 09/26/24 [Soliqua 100 Unit-33 Mcg/ml Pen] Levothyroxine Sodium [Synthroid] 112 mcg PO DAILY 09/26/24 09/26/24 Losartan/Hydrochlorothiazide 1 tab PO DAILY 09/26/24 09/26/24 [Hyzaar 100-25 Tablet] Turmeric Root Extract [Turmeric] 500 mg PO BID PRN 09/26/24 09/26/24 Zinc 15mg 1 tab PO DAILY 09/26/24 09/26/24 Allergies Allergy/AdvReac Type Severity Reaction Status Date / Time erythromycin base Allergy Rash/Hives Verified 09/26/24 15:01 Sulfa (Sulfonamide Allergy Rash/Hives Verified 09/26/24 15:01 Antibiotics) Review of Systems ROS Other: All systems not noted in ROS Statement are negative. <Manjeet Luz - Last Filed: 09/26/24 14:47> ROS Other: All systems not noted in ROS Statement are negative. <Dayton Mayer - Last Filed: 09/26/24 19:52> ROS Statement: Those systems with pertinent positive or pertinent negative responses have been documented in the HPI. Past Medical History Past Medical History: Diabetes Mellitus, Hypertension, Myocardial Infarction (RI), Thyroid Disorder Last Myocardial Infarction Date:: 2012 History of Any Multi-Drug Resistant Organisms: None Reported Past Surgical History: Coronary Bypass/CABG, Heart Catheterization With Stent, Hysterectomy, Tonsillectomy Past Anesthesia/Blood Transfusion Reactions: No Reported Reaction Date of Last Stent Placement:: 2013 Past Psychological History: No Psychological Hx Reported Smoking Status: Former smoker Past Alcohol Use History: Occasional Past Drug Use History: None Reported - Past Family History Mother Family Medical History: Coronary Artery Disease (CAD), Myocardial Infarction (RI) Father Family Medical History: No Reported History Sister(s) Family Medical History: No Reported History Brother(s) Family Medical History: No Reported History Son(s) Family Medical History: No Reported History <Manjeet Luz - Last Filed: 09/26/24 14:47> General Exam Limitations: no limitations <Manjeet Luz - Last Filed: 09/26/24 14:47> - General Exam Comments Initial Comments: PHYSICAL EXAM: General Impression: Alert and oriented x3, not in acute distress HEENT: Normocephalic atraumatic, extra-ocular movements intact, pupils equal and reactive to light bilaterally, mucous membranes moist. Cardiovascular: Heart regular rate and rhythm Chest: Able to complete full sentences, no retractions, no tachypnea Abdomen: abdomen soft, non-tender, non-distended, no organomegaly Musculoskeletal: Pulses present and equal in all extremities, no peripheral edema Motor: no focal deficits noted Neurological: CN II-XII grossly intact, no focal motor or sensory deficits noted Skin: Intact with no visualized rashes Psych: Normal affect and mood (Manjeet Luz) Course Vital Signs 09/26/24 09/26/24 09/26/24 13:09 13:13 14:13 Temperature 97.4 F L Pulse Rate 79 75 75 Respiratory 16 20 16 Rate Blood Pressure 215/89 170/70 177/79 O2 Sat by Pulse 97 98 Oximetry 09/26/24 09/26/24 15:14 17:17 Temperature Pulse Rate 61 60 Respiratory 16 18 Rate Blood Pressure 161/77 175/67 O2 Sat by Pulse 96 98 Oximetry EKG Findings - EKG Comments: EKG Findings:: My EKG interpretation: Ventricular rate 69, sinus rhythm,. Will 205, QRS 116, QTc 4 6. No MI prolongation, no QTC prolongation. ST depressions seen in inferior leads and lateral precordial leads. These depressions are mild there is no obvious ST elevations. Overall this EKG is unremarkable. Compared to 2016February 10 <Manjeet Luz - Last Filed: 09/26/24 14:47> Medical Decision Making - Lab Data Result diagrams: 09/26/24 13:23 09/26/24 13:23 <Manjeet Luz - Last Filed: 09/26/24 14:47> - Lab Data Result diagrams: 09/26/24 13:23 09/26/24 13:23 <Dayton Mayer - Last Filed: 09/26/24 19:52> - Medical Decision Making Was pt. sent in by a medical professional or institution (, PA, CATEGORY DEVELOPMENT MANAGER, urgent care, hospital, or [facility]...) When possible be specific @ -No Did you speak to anyone other than the patient for history (EMS, parent, family, police, friend...)? What history was obtained from this source @ -No Did you review nursing and triage notes (agree or disagree)? Why? @ -I reviewed and agree with nursing and triage notes Were old charts reviewed (outside hosp., previous admission, EMS record, old EKG, old radiological studies, urgent care reports/EKG's, [facility] records)? Report findings @ -No old charts were reviewed Differential Diagnosis (chest pain, altered mental status, abdominal pain women, abdominal pain men, vaginal bleeding, musculoskeletal, weakness, fever, dyspnea, syncope, headache, dizziness, GI bleed, back pain, seizure, CVA, p alpatations, mental health)? @ -Differential Chest Pain: Stable Angina, Unstable Angina, STEMI, NSTEMI Aortic Dissection, Pneumothorax, Musculoskeletal, Esophageal Spasm GERD, Cholecystitis, Pancreatitis, Zoster, this is not meant to be an all-inclusive list. EKG interpreted by me (3pts min.). @ -See above X-rays interpreted by me (1pt min.). @ -Chest x-ray and shoulder x-ray shows no acute processes CT interpreted by me (1pt min.). @ -None done U/S interpreted by me (1pt. min.). @ -None done What testing was considered but not performed or refused? (CT, X-rays, U/S, labs)? Why? @ -None What meds were considered but not given or refused? Why? @ -None Was smoking cessation discussed for >3mins.? @ -No Were there social determinants of health that impacted care today? How? (Homele ssness, low income, unemployed, alcoholism, drug addiction, transportation, low edu. Level, literacy, decrease access to med. care, usp, rehab)? @ -No Was there de-escalation of care discussed even if they declined (Discuss DNR or withdrawal of care, Hospice)? DNR status @ -No What co-morbidities impacted this encounter? (DM, HTN, Smoking, COPD, CAD, Cancer, CVA, ARF, Chemo, Hep., AIDS, mental health diagnosis, sleep apnea, morbid obesity)? @ -History of myocardial infarction Was patient admitted / discharged? Hospital course, mention meds given and route, prescriptions, significant lab abnormalities, going to OR and other pertinent info. @ -59-year-old female presents with right scapular pain with radiation down the right upper extremity. Vital signs upon arrival shows blood pressure of 215/89 raising suspicion of arterial dissection. EKG shows minus concerning for ischemia. Laboratory evaluation obtained. Labs are within acceptable limits. Plain films are negative. CT angiography ordered for evaluation of possible arterial dissection. Of note patient reports that she had weird shoulder symptoms with diagnosis of her previous RI. patient care signed out to Dr. Mayer at 3pm Did you discuss the management of the patient with other professionals (professionals i.e. , PA, CATEGORY DEVELOPMENT MANAGER, lab, RT, psych nurse, health care social worker, fishing vessel mate, teacher, chief technical officer, medical case manager)? Give summary @ -No Was critical care preformed (if so, how long)? @ -No Undiagnosed new problem with uncertain prognosis? @ -No Drug Therapy requiring intensive monitoring for toxicity (Heparin, Nitro, Insulin, Cardizem)? @ -No Were any procedures done? @ -No Diagnosis/symptom? Acute, or Chronic, or Acute on Chronic? Uncomplicated (without systemic symptoms) or Complicated (systemic symptoms)? @ -Scapular pain Side effects of treatment? @ -No Exacerbation, Progression, or Severe Exacerbation? @ -No Poses a threat to life or bodily function? How? (Chest pain, USA, RI, pneumonia, PE, COPD, DKA, ARF, appy, cholecystitis, CVA, Diverticulitis, Homicidal, Suicidal, threat to staff... and all critical care pts) @ -Yes (Manjeet Luz) Patient is a 59-year-old female signed out to me pending results of CT angiogram of the aorta and right arm. Presents with right shoulder blade, arm pain and tingling sensation for 1 day. Patient did fall into the wall or her fridge a few days ago but did not began having symptoms until yesterday. States when she required cardiac bypass, she also had shoulder blade pain with radiation down the arm however it was the left arm. States this reminds her of her and presented for further evaluation at this time. Denies chest pain anteriorly currently. Workup thus far unremarkable including undetectable troponin. Imaging was pending. As interpreted by myself, CT imaging CTA of aorta revealed no suspicious dissection or aneurysm. Right upper extremity CTA also unremarkable for any obvious acute process. Right shoulder x-ray as interpreted by previous provider as well as myself revealed chronic degenerative changes of the right rotator cuff which could be the source of her pain. On reevaluation, I discussed results with the patient. Due to her significant cardiac history as well as her symptoms reminding her of her heart when she required the bypass surgery, patient will be admitted. She expresses understanding was in agreement this plan. Cardiology will be consulted. We will trend the troponin. We will continue with pain control. Did discuss it could be musculoskeletal in nature but safest option is for cardiac monitoring and she was in agreement the plan. Spoke with BENJAMIN KEVIN who accepted the admission. Diagnosis/symptom? @ -Right shoulder pain/scapular pain with history of ACS Acute, or Chronic, or Acute on Chronic? @ -Acute Uncomplicated (without systemic symptoms) or Complicated (systemic symptoms)? @ -Complicated Side effects of treatment? @ -None Exacerbation, Progression, or Severe Exacerbation] @ -No Poses a threat to life or bodily function? @ -Potentially, yes. Could be ACS. (Dayton Mayer) - Lab Data Lab Results 09/26/24 09/26/24 09/26/24 Range/Units 13:23 13:23 13:23 WBC 9.0 (3.8-10.6) k/uL RBC 4.68 (3.80-5.40) m/uL Hgb 13.4 (11.4-16.0) gm/dL Hct 40.6 (34.0-46.0) % MCV 86.9 (80.0-100.0) fL MCH 28.6 (25.0-35.0) pg MCHC 32.9 (31.0-37.0) g/dL RDW 13.5 (11.5-15.5) % Plt Count 372 (150-450) k/uL MPV 8.1 Neutrophils % 61 % Lymphocytes % 30 % Monocytes % 6 % Eosinophils % 2 % Basophils % 1 % Neutrophils # 5.5 (1.3-7.7) k/uL Lymphocytes # 2.7 (1.0-4.8) k/uL Monocytes # 0.5 (0-1.0) k/uL Eosinophils # 0.2 (0-0.7) k/uL Basophils # 0.1 (0-0.2) k/uL PT 11.3 (10.0-12.5) sec INR 1.0 (<1.2) APTT 23.2 (22.0-30.0) sec Sodium 138 (137-145) mmol/L Potassium 4.8 (3.5-5.1) mmol/L Chloride 98 (98-107) mmol/L Carbon Dioxide 31 H (22-30) mmol/L Anion Gap 9 mmol/L BUN 16 (7-17) mg/dL Creatinine 0.90 (0.52-1.04) mg/dL Est GFR (CKD-EPI)AfAm 80 (>60 ml/min/1.73 sqM) Est GFR (CKD-EPI)NonAf 70 (>60 ml/min/1.73 sqM) Glucose 173 H (74-99) mg/dL Calcium 10.8 H (8.4-10.2) mg/dL Magnesium 2.0 (1.6-2.3) mg/dL Total Bilirubin 0.5 (0.2-1.3) mg/dL AST 23 (14-36) U/L ALT 19 (4-34) U/L Alkaline Phosphatase 51 (38-126) U/L Troponin I (0.000-0.034) ng/mL Total Protein 8.3 H (6.3-8.2) g/dL Albumin 4.8 (3.5-5.0) g/dL 09/26/24 Range/Units 13:23 WBC (3.8-10.6) k/uL RBC (3.80-5.40) m/uL Hgb (11.4-16.0) gm/dL Hct (34.0-46.0) % MCV (80.0-100.0) fL MCH (25.0-35.0) pg MCHC (31.0-37.0) g/dL RDW (11.5-15.5) % Plt Count (150-450) k/uL MPV Neutrophils % % Lymphocytes % % Monocytes % % Eosinophils % % Basophils % % Neutrophils # (1.3-7.7) k/uL Lymphocytes # (1.0-4.8) k/uL Monocytes # (0-1.0) k/uL Eosinophils # (0-0.7) k/uL Basophils # (0-0.2) k/uL PT (10.0-12.5) sec INR (<1.2) APTT (22.0-30.0) sec Sodium (137-145) mmol/L Potassium (3.5-5.1) mmol/L Chloride (98-107) mmol/L Carbon Dioxide (22-30) mmol/L Anion Gap mmol/L BUN (7-17) mg/dL Creatinine (0.52-1.04) mg/dL Est GFR (CKD-EPI)AfAm (>60 ml/min/1.73 sqM) Est GFR (CKD-EPI)NonAf (>60 ml/min/1.73 sqM) Glucose (74-99) mg/dL Calcium (8.4-10.2) mg/dL Magnesium (1.6-2.3) mg/dL Total Bilirubin (0.2-1.3) mg/dL AST (14-36) U/L ALT (4-34) U/L Alkaline Phosphatase (38-126) U/L Troponin I <0.012 (0.000-0.034) ng/mL Total Protein (6.3-8.2) g/dL Albumin (3.5-5.0) g/dL Disposition <Manjeet Luz - Last Filed: 09/26/24 14:47> Time of Disposition: 17:15 <Dayton Mayer - Last Filed: 09/26/24 19:52> Clinical Impression: Pain in scapula, Right shoulder pain Disposition: ADMITTED IP TO THIS [facility] Condition: Stable
[2024-09-26] MEDS: MORPHINE SULFATE 4 MG/ML SYRINGE IVP PRN (13:48)
[2024-09-26] MEDS: ASPIRIN 81 MG PO STA (13:48)
[2024-09-26 13:50] LABS: Basophils # (A) 0.1 k/uL (0-0.2); Basophils % (A) 1 %; Eosinophils # (A) 0.2 k/uL (0-0.7); Eosinophils % (A) 2 %; HCT 40.6 % (34.0-46.0); HGB 13.4 gm/dL (11.4-16.0); Lymphocytes # (A) 2.7 k/uL (1.0-4.8); Lymphocytes % (A) 30 %; MCH 28.6 pg (25.0-35.0); MCHC 32.9 g/dL (31.0-37.0); MCV 86.9 fL (80.0-100.0); Mean Platelet Volume 8.1; Monocytes # (A) 0.5 k/uL (0-1.0); Monocytes % (A) 6 %; Neutrophils # (A) 5.5 k/uL (1.3-7.7); Neutrophils % (A) 61 %; Platelet Count 372 k/uL (150-450); RBC 4.68 m/uL (3.80-5.40); RDW 13.5 % (11.5-15.5)
[2024-09-26 14:03] LABS: ALT 19 U/L (4-34); AST 23 U/L (14-36); African American GFR (CKD) 80 (>60 ml/min/1.73 sqM); Albumin 4.8 g/dL (3.5-5.0); Alkaline Phosphatase 51 U/L (38-126); Anion Gap 9 mmol/L; Blood Urea Nitrogen 16 mg/dL (7-17); Calcium 10.8 mg/dL (8.4-10.2); Carbon Dioxide 31 mmol/L (22-30); Chloride 98 mmol/L (98-107); Glucose 173 mg/dL (74-99); Non-African American GFR(CKD) 70 (>60 ml/min/1.73 sqM); Potassium 4.8 mmol/L (3.5-5.1); Sodium 138 mmol/L (137-145); Total Bilirubin 0.5 mg/dL (0.2-1.3); Total Protein 8.3 g/dL (6.3-8.2)
[2024-09-26 14:09] LABS: Partial Thromboplastin Time 23.2 sec (22.0-30.0); Prothrombin Time 11.3 sec (10.0-12.5)
--- NOTE | 2024-09-26 14:40 | XR ---
EXAMINATION TYPE: XR chest 2V DATE OF EXAM: 09/26/2024 2:18 PM COMPARISON: Chest radiographs from 2016. CLINICAL INDICATION: Female, 59 years old with history of Chest Pain; [facility] TECHNIQUE: XR chest 2V Frontal and lateral views of the chest. FINDINGS: Lungs/Pleura: There is no evidence of pleural effusion, focal consolidation, or pneumothorax. Pulmonary vascularity: Unremarkable. Heart/mediastinum: Cardiomediastinal silhouette is unremarkable. Musculoskeletal: No acute osseous pathology. Midline sternotomy wires are noted. Other findings: None IMPRESSION: No acute cardiopulmonary disease/process. [facility], , 09/26/2024 2:38 PM
--- NOTE | 2024-09-26 14:43 | XR ---
EXAMINATION TYPE: XR shoulder complete RT DATE OF EXAM: 09/26/2024 2:18 PM COMPARISON: None CLINICAL INDICATION: Female, 59 years old with history of scapular pain; [facility], pain TECHNIQUE: XR shoulder complete RT; examined in AP, internally rotated and scapular Y projections. FINDINGS: No evidence of acute osseous pathology, joint dislocation, or soft tissue swelling. The remaining po rtions of the visualized chest are unremarkable. Calcification near the insertion of the superior IMPRESSION: 1. No acute osseous pathology. 2. Mild shoulder osteoarthrosis. 3. Spinous tendon seen on one view. Rotator cuff tendinopathy suggested. [facility], , 09/26/2024 2:40 PM
--- NOTE | 2024-09-26 15:34 | CT ---
EXAMINATION TYPE: CT angio thor/abd DATE OF EXAM: 09/26/2024 3:20 PM COMPARISON: None. CLINICAL INDICATION: Female, 59 years old with history of suspect dissection, Severe right arm and sh oulder pain starting last night. TECHNIQUE: CT angio thor/abd , with sagittal coronal reformats. If MIP/3-D images were created, there are created on a separate workstation. 3-D Images are reviewed Contrast used:100ml mL of Isovue 370 without and with IV Contrast, (none if empty) Oral contrast used: (none if empty) CT DLP: 1137.6 mGycm, Automated exposure control for dose reduction was used. FINDINGS: CT CHEST: No thoracic aortic dissection evident. There is a three-vessel arch. Portion of the thyroid visualized is prominent. No suspicious lung nodules or focal infiltrates are present. No enlarged mediastinal or hilar adenopathy is evident. The ascending aorta diameter at the level of the main pulmonary artery is 3.2 cm. The main pulmonary artery diameter at the bifurcation is 2.[address] ABDOMEN: Liver: Mild fatty infiltration liver is not excluded Spleen: Normal Pancreas: Normal Adrenal glands: The adrenal glands are normal. Gallbladder: Normal Kidneys: No masses are evident. No hydronephrosis is present. No cysts are present. Delayed images were obtained through the kidneys, which remain unremarkable. Aorta: Vascular calcification is within the aorta. Celiac axis superior mesenteric artery and renal artery takeoffs are normal. Aortic bifurcation is normal. Internal and external iliac vessels are pat ent Inferior vena cava: Normal. Loops of bowel without contrast appear unremarkable. IMPRESSION: 1. No suspicious aortic dissection or aneurysm of the thoracic or abdominal aorta. 2. Thyromegaly. [facility], , 09/26/2024 3:31 PM
--- NOTE | 2024-09-26 15:41 | CT ---
EXAMINATION TYPE: CT angio upper extremity RT DATE OF EXAM: 09/26/2024 3:22 PM COMPARISON: None. CLINICAL INDICATION: Female, 59 years old with history of suspect dissection, Severe right arm and sh oulder pain starting last night. TECHNIQUE: Contrast used:100ml mL of Isovue 370 with IV Contrast, (none if empty) Oral contrast used: (none if empty) Axial images 2 mm thick sections. 3-D reconstructed images on a separate computer were performed by kirsten santos technologist in presented. 2-D minute imaging is performed. FINDINGS: Right subclavian artery is normal. Right axillary artery is normal. Brachial artery is normal radial and ulnar arteries are patent. No dissections are identified in the right upper extremity. Right upper extremity appears normal. No acute fractures evident. Joint spaces appear preserved. Right lung field within the [id number] has some mild compressive atelectasis in the dependent port ion but is otherwise unremarkable.. IMPRESSION: 1. NO SUSPICIOUS ABNORMALITY TO ACCOUNT FOR RIGHT ARM PAIN. 2. NO SUSPICIOUS ARTERIAL DISSECTION OR ANEURYSM WITHIN THE [id number] [facility], , 09/26/2024 3:39 PM
[2024-09-26] MEDS ORDERED: MORPHINE SULFATE 4 MG/ML SYRINGE IVP PRN (16:55)
[2024-09-26] MEDS: MORPHINE SULFATE 4 MG/ML SYRINGE IVP STA (17:16)
[2024-09-26] MEDS: KETOROLAC 15 MG/ML 1 ML VIAL IVP STA (17:16)
[2024-09-26] MEDS: LIDOCAINE 4% PATCH TOPICAL STA (17:17)
[2024-09-26] MEDS ORDERED: ONDANSETRON 4 MG/2 ML VIAL IVP PRN (17:18)
[2024-09-26] MEDS ORDERED: NALOXONE 0.4 MG/ML 1 ML VIAL IV PRN (17:18)
[2024-09-26] MEDS: HEPARIN SODIUM,PORCINE 5,000 UNIT/ML 1 ML VIAL SQ SCH (18:08)
[2024-09-26] MEDS: SODIUM CHLORIDE 0.9% 1,000 ML IV SCH (18:08)
[2024-09-26] MEDS: ATORVASTATIN 80 MG TAB PO SCH (20:23)
[2024-09-26] MEDS: METOPROLOL TARTRATE 25 MG TAB PO SCH (20:23)
[2024-09-26] MEDS: MORPHINE SULFATE 4 MG/ML SYRINGE IV PRN (22:39)
[2024-09-27] MEDS: KETOROLAC 15 MG/ML 1 ML VIAL IVP PRN (01:06)
[2024-09-27 05:44] LABS: Glucose,Whole Blood 82 mg/dL (70-110)
[2024-09-27] MEDS: LEVOTHYROXINE 112 MCG TAB PO SCH (06:18)
[2024-09-27 07:48] VITALS: BP 145/60; PULSE 65; TEMP 97.6
[2024-09-27 08:25] LABS: Basophils % (A) 1.2 %; Eosinophils # (A) 0.46 X 10*3/uL (0.04-0.35); Eosinophils % (A) 5.5 %; HCT 40.2 % (37.2-46.3); HGB 12.3 g/dL (12.0-15.0); Lymphocytes # (A) 3.51 X 10*3/uL (0.90-5.00); MCH 27.1 pg (27.0-32.0); MCHC 30.6 g/dL (32.0-37.0); MCV 88.5 FL (80.0-97.0); Mean Platelet Volume 11.2 FL (9.5-12.2); Monocytes # (A) 0.82 X 10*3/uL (0.20-1.00); Monocytes % (A) 9.8 %; NRBC Per 100 WBC 0 X 10*3/uL (0.00-0.01); Neutrophils # (A) 3.43 X 10*3/uL (1.80-7.70); Neutrophils % (A) 41.1 %; Platelet Count 376 X 10*3/uL (140-440); RBC 4.54 X 10*6/uL (4.10-5.20); WBC 8.35 X 10*3/uL (4.50-10.00)
[2024-09-27 08:32] LABS: ALT 15 U/L (8-44); AST 19 U/L (13-35); Albumin/Globulin Ratio 1.33 Ratio (1.60-3.17); Alkaline Phosphatase 49 U/L (41-126); BUN/Creat Ratio 20.91 Ratio (12.00-20.00); Carbon Dioxide 24.2 mmol/L (21.6-31.8); Chloride 103 mmol/L (96-109); Glucose 75 mg/dL (70-110); Sodium 139 mmol/L (135-145); Total Bilirubin <0.2 mg/dL (0.3-1.2)
[2024-09-27 09:23] LABS: Glucose,Whole Blood 80 mg/dL (70-110)
[2024-09-27] MEDS: NON FORMULARY DRUG (Insulin Glargine/Lixisenatide [Soliqua 100 Unit-33 Mcg/Ml Pen] 3 ML In SQ SCH (10:46)
[2024-09-27] MEDS ORDERED: ACETAMINOPHEN TAB 325 MG TAB PO PRN (10:51)
--- NOTE | 2024-09-27 11:12 | P.CRDCN ---
History of Present Illness History of present illness: HISTORY OF PRESENTING ILLNESS This is a pleasant 59-year-old with past medical history significant for hypertension, hyperlipidemia, diabetes mellitus type 2, CAD with prior CABG. patient just recently saw Dr. Mooney. She had recent stress test with no inducible ischemia. she has been feeling well up until 2-3 days ago she started getting right upper extremity sharp pain above her right scapula. She admits to some associated nausea and some mild diaphoresis. She admits this did not feel similar to her prior CABG approximately 10 years ago where she had more left- sided back pain. Denies any associated shortness breath. Troponins normal 3. She had CTA chest and upper extremity which showed no dissection. She initially went to urgent care however is recommended to go to emergency Department. Currently her scapula pain is reproducible with palpation. She has been feeling well up until REVIEW OF SYSTEMS At the time of my exam: CONSTITUTIONAL: Denies fever or chills. CARDIOVASCULAR: +chest pain, no shortness of breath, orthopnea, PND or palpitations. RESPIRATORY: Denies cough. GASTROINTESTINAL: Denies abdominal pain, diarrhea, constipation, nausea or vomiting. MUSCULOSKELETAL: Denies myalgias. NEUROLOGIC: Denies numbness, tingling or weakness. ENDOCRINE: Denies fatigue, weight change, polydipsia or polyurina. GENITOURINARY: Denies burning, hematuria or urgency with micturation. HEMATOLOGIC: Denies history of anemia or bleeding. PHYSICAL EXAMINATION Vital signs reviewed. CONSTITUTIONAL: No apparent distress. HEENT: Head is normocephalic. Pupils are equal, round. Sclerae anicteric. Mucous membranes of the mouth are moist. No JVD. No carotid bruit. CHEST EXAMINATION: Lungs are clear to auscultation. No chest wall tenderness is noted on palpation or with deep breathing. HEART EXAMINATION: Regular rate and rhythm. S1, S2 heard. No murmurs, gallops or rub. ABDOMEN: Soft, nontender. Positive bowel sounds. EXTREMITIES: 2+ peripheral pulses, no lower extremity edema and no calf tenderness. NEUROLOGIC EXAMINATION: Patient is awake, alert and oriented x3. ASSESSMENT CAD with history of CABG Abnormal EKG with ST depressions, chronic Atypical right scapula pain more musculoskeletal Hypertension Hyperlipidemia Diabetes mellitus type 2 PLAN patient with recent stress testing with no inducible ischemia and pain is atypical and reproducible. No further workup as an inpatient. Follow-up as an outpatient. Past Medical History Past Medical History: Diabetes Mellitus, Hypertension, Myocardial Infarction ([place]), Thyroid Disorder Last Myocardial Infarction Date:: 2012 History of Any Multi-Drug Resistant Organisms: None Reported Past Surgical History: Coronary Bypass/CABG, Heart Catheterization With Stent, Hysterectomy, Tonsillectomy Additional Past Surgical History / Comment(s): CABG X3 2014 Past Anesthesia/Blood Transfusion Reactions: No Reported Reaction Date of Last Stent Placement:: 2012 Past Psychological History: No Psychological Hx Reported Smoking Status: Former smoker Past Alcohol Use History: Occasional Past Drug Use History: None Reported - Past Family History Mother Family Medical History: Coronary Artery Disease (CAD), Myocardial Infarction (NM) Father Family Medical History: No Reported History Sister(s) Family Medical History: No Reported History Brother(s) Family Medical History: No Reported History Son(s) Family Medical History: No Reported History Medications and Allergies Home Medications Medication Instructions Recorded Confirmed Type Aspirin 81 mg PO DAILY 04/01/15 09/26/24 History Metoprolol Tartrate [Lopressor] 25 mg PO BID 04/01/15 09/26/24 History Atorvastatin Calcium [Lipitor] 80 mg PO HS 02/09/17 09/26/24 History Ascorbic Acid [Vitamin C] 1,000 mg PO DAILY 09/26/24 09/26/24 History Cholecalciferol [Vitamin D3 (25 100 mcg PO DAILY 09/26/24 09/26/24 History Mcg = 1000 Iu)] Fenofibrate [Lofibra] 160 mg PO DAILY 09/26/24 09/26/24 History Insulin Glargine/Lixisenatide 40 units SQ DAILY 09/26/24 09/26/24 History [Soliqua 100 Unit-33 Mcg/ml Pen] Levothyroxine Sodium [Synthroid] 112 mcg PO DAILY 09/26/24 09/26/24 History Losartan/Hydrochlorothiazide 1 tab PO DAILY 09/26/24 09/26/24 History [Hyzaar 100-25 Tablet] Turmeric Root Extract [Turmeric] 500 mg PO BID PRN 09/26/24 09/26/24 History Zinc 15mg 1 tab PO DAILY 09/26/24 09/26/24 History Allergies Allergy/AdvReac Type Severity Reaction Status Date / Time erythromycin base Allergy Rash/Hives Verified 09/26/24 15:01 Sulfa (Sulfonamide Allergy Rash/Hives Verified 09/26/24 15:01 Antibiotics) Physical Exam Vitals: Vital Signs Temp Pulse Pulse Resp BP BP BP 09/27/24 07:00 97.6 F 65 16 145/60 09/27/24 02:00 97.7 F 67 17 143/73 09/26/24 21:47 67 17 132/70 09/26/24 20:00 98.1 F 78 17 138/75 09/26/24 17:17 60 18 175/67 09/26/24 15:14 61 16 161/77 09/26/24 14:13 75 16 177/79 09/26/24 13:13 75 20 170/70 09/26/24 13:09 97.4 F L 79 16 215/89 Pulse Ox 09/27/24 07:00 99 09/27/24 02:00 98 09/26/24 21:47 98 09/26/24 20:00 95 09/26/24 17:17 98 09/26/24 15:14 96 09/26/24 14:13 09/26/24 13:13 98 09/26/24 13:09 97 Intake and Output 09/26/24 09/27/24 09/27/24 22:59 06:59 14:59 Other: Voiding Method Toilet # Voids 1 2 Weight 65.771 kg Results 09/27/24 05:18 09/27/24 05:18 Cardiac Enzymes 09/26/24 09/26/24 09/26/24 Range/Units 13:23 13:23 17:26 AST 23 (14-36) U/L Troponin I <0.012 <0.012 (0.000-0.034) ng/mL 09/26/24 09/27/24 Range/Units 20:10 05:18 AST 19 (14-36) U/L Troponin I <0.012 (0.000-0.034) ng/mL Coagulation 09/26/24 Range/Units 13:23 PT 11.3 (10.0-12.5) sec APTT 23.2 (22.0-30.0) sec CBC 09/26/24 09/27/24 Range/Units 13:23 05:18 WBC 9.0 8.35 (3.8-10.6) k/uL RBC 4.68 4.54 (3.80-5.40) m/uL Hgb 13.4 12.3 (11.4-16.0) gm/dL Hct 40.6 40.2 (34.0-46.0) % Plt Count 372 376 (150-450) k/uL Comprehensive Metabolic Panel 09/26/24 09/27/24 Range/Units 13:23 05:18 Sodium 138 139 (137-145) mmol/L Potassium 4.8 4.0 (3.5-5.1) mmol/L Chloride 98 103 (98-107) mmol/L Carbon Dioxide 31 H 24.2 (22-30) mmol/L BUN 16 23.0 (7-17) mg/dL Creatinine 0.90 1.1 (0.52-1.04) mg/dL Glucose 173 H 75 (74-99) mg/dL Calcium 10.8 H 10.0 (8.4-10.2) mg/dL AST 23 19 (14-36) U/L ALT 19 15 (4-34) U/L Alkaline Phosphatase 51 49 (38-126) U/L Total Protein 8.3 H 7.0 (6.3-8.2) g/dL Albumin 4.8 4.0 (3.5-5.0) g/dL Current Medications Generic Name Dose Route Start Last Admin Trade Name Freq PRN Reason Stop Dose Admin Acetaminophen 650 mg 09/27/24 10:51 Acetaminophen Tab 325 Mg Tab PO Q6HR PRN Fever and/ or Pain Ascorbic Acid 1,000 mg 09/27/24 09:00 Ascorbic Acid 500 Mg Tab PO DAILY [facility] Aspirin 81 mg 09/27/24 09:00 Aspirin 81 Mg PO DAILY [facility] Atorvastatin Calcium 80 mg 09/26/24 21:00 09/26/24 20:23 Atorvastatin 80 Mg Tab PO 80 mg HS GENE Administration HCTZ/Losartan Potassium 2 each 09/27/24 09:00 Losartan-Hctz 50-12.5 Mg 1 Each Tab PO DAILY [facility] Heparin Sodium (Porcine) 5,000 unit 09/26/24 17:30 09/27/24 01:05 Heparin Sodium,Porcine 5,000 Unit/Ml 1 Ml Vial SQ 5,000 unit Q8HR GENE Administration Sodium Chloride 1,000 mls @ 75 mls/hr 09/26/24 17:30 09/27/24 07:43 Saline 0.9% IV Not Given .[id number] [facility] Ketorolac Tromethamine 15 mg 09/27/24 00:23 09/27/24 01:06 Ketorolac 15 Mg/Ml 1 Ml Vial IVP 10/02/24 00:23 15 mg Q6HR PRN Administration Pain Levothyroxine Sodium 112 mcg 09/27/24 06:30 09/27/24 06:18 Levothyroxine 112 Mcg Tab PO 112 mcg DAILY@0630 [facility] Administration Metoprolol Tartrate 25 mg 09/26/24 21:00 09/26/24 20:23 Metoprolol Tartrate 25 Mg Tab PO 25 mg BID GENE Administration Morphine Sulfate 4 mg 09/26/24 13:23 09/26/24 13:48 Morphine Sulfate 4 Mg/Ml Syringe IVP 4 mg ONCE PRN Administration Pain Morphine Sulfate 4 mg 09/26/24 17:18 09/27/24 06:53 Morphine Sulfate 4 Mg/Ml Syringe IV 4 mg Q4HR PRN Administration Severe Pain (Scale 7 to 10) Naloxone HCl 0.2 mg 09/26/24 17:18 Naloxone 0.4 Mg/Ml 1 Ml Vial IV Q2M PRN Opioid Reversal Non-Formulary Medication 40 units 09/27/24 09:00 09/27/24 10:46 Insulin Glargine/Lixisenatide [Soliqua 100 Unit-33 Mcg/Ml Pen] SQ Not Given DAILY [facility] Ondansetron HCl 4 mg 09/26/24 17:18 Ondansetron 4 Mg/2 Ml Vial IVP Q8HR PRN Nausea And Vomiting Intake and Output 09/26/24 09/27/24 09/27/24 22:59 06:59 14:59 Other: Voiding Method Toilet # Voids 1 2 Weight 65.771 kg 09/27/24 05:18 09/27/24 05:18
[2024-09-27] MEDS: ASCORBIC ACID 500 MG TAB PO SCH (11:35)
[2024-09-27] MEDS: ASPIRIN 81 MG PO SCH (11:35)
[2024-09-27] MEDS: LOSARTAN-HCTZ 50-12.5 MG 1 EACH TAB PO SCH (11:39)
[2024-09-27 11:46] LABS: Glucose,Whole Blood 117 mg/dL (70-110)
[2024-09-27 12:33] VITALS: RESP 18
--- NOTE | 2024-09-27 13:15 | P.HPIM ---
History of Present Illness H&P Date: 09/27/24 Chief Complaint: Right shoulder pain Patient is a 59-year-old female with diabetes mellitus, hypertension, history of CABG, coronary artery disease with heart cath with stent, history of [place] (last 1 2012) presented to the emergency department with right shoulder pain. Pat ient states that it originates in the scapula and causes tingling into right upper extremity. Patient visited an urgent care yesterday and had a chest x-ray which was found to be unremarkable and she was then discharged. Patient was seen at bedside. She reported home Monday she woke up with right shoulder pain along with tingling and numbness into her right forearm and fingertips. She currently endorses an 10 out of 10 pain in severity. Patient denies any chest pain, shortness of breath, chest cavity tenderness to palpation, nausea, vomiting, belly pain, diarrhea, constipation, lower extremity swelling. ED documentation reviewed. In the ED patient was treated with aspirin 324 mg p.o . x 1, Toradol 15 mg IV x 1, lidocaine patch, morphine sulfate 4 mg IV x 1 Vitals on admission temperature 97.6, pulse rate 65, respiratory rate 16, blood pressure 145/60, O2 sat 99% on room air EKG independently interpreted as sinus bradycardia with first-degree AV block with a ventricular rate of 56 bpm, QTc 445 ms CXR shows no acute cardiopulmonary disease/process Shoulder x-ray no acute osseous pathology. Mild shoulder osteoarthrosis. Spinous tendon seen on 1 view. Rotator cuff tendinopathy suggested. Chest/abdomen CTA no suspicious aortic dissection or aneurysm of the thoracic or abdominal aorta. Thyromegaly Upper extremity CTA shows no suspicious abnormality to account for right arm pain. No suspicious arterial dissection or aneurysm within the [id number]. Labs on admission show WBC 8.35, hemoglobin 12.3, hematocrit 40.2, platelet 376, PT 11.3, INR 1.0, PTT 23.2, sodium 139, potassium 4.0, chloride 103, carbon dioxide 24.2, BUN 23, creatinine 1.1, glucose 75, troponin less than 0.012 Review of systems: Pertinent positives and negatives as discussed in HPI, a complete review of systems was performed and all other systems are negative. PMH: diabetes mellitus, hypertension, history of CABG, coronary artery disease with heart cath with stent, history of [place] (last 1 2012) PSH: Coronary bypass, heart cath with stent, hysterectomy, tonsillectomy FMH: Mother has a history of coronary artery disease and myocardial infarction Allergies: Erythromycin and sulfa antibiotics Social history: Tobacco: Former smoker Alcohol: Occasional Recreational drugs: None reported Travel: No travel history Sick contacts: No sick contacts Physical examination: Vital signs reviewed General: nontoxic, no distress, appears at stated age Derm: warm, dry, intact Head: atraumatic, normocephalic, symmetric Eyes: EOMI, anicteric sclera Mouth: no lip lesion, mucus membranes moist Cardiovascular: S1 S2 reg, no murmur Lungs: CTA bilateral, no rhonchi, no rales, no accessory muscle use Abdominal: soft, non-tender to palpation Extremities: No cyanosis, clubbing, or pedal edema. Right scapula, shoulder, elbow tender to palpation. No signs of swelling, erythema, discoloration in right arm. Neuro: Alert, Oriented, Gross neurological examination did not reveal any focal deficits. Cranial nerves 2-12 grossly intact. Bilateral upper and lower extremity muscle strength and sensation intact. Psych: well appearing, appropriate affect Assessment/Plan: Patient is a 59-year-old female with diabetes mellitus, hypertension, history of CABG, coronary artery disease with heart cath with stent, history of [place] (last 1 2012) presented to the emergency department with right shoulder pain. Patient will be admitted to internal medicine service. Active: #. Right shoulder pain, rule out ACS #. Rotator cuff tendinopathy EKG showed sinus bradycardia with first-degree AV block with ventricular rate of 56 bpm, QTc interval 445 ms Shoulder X ray shows rotator cuff tendinopathy suggested Troponin less than 0.012 Trend troponin Continue cardiac monitoring Consult cardiology History of CABG with similar symptoms Chronic: #. Hyperlipidemia #. Hypothyroidism #. Hypertension #. Vitamin D deficiency #. Diabetes mellitus Resume home medications F: No restrictions E: Replete as needed N: Heart healthy diet A: Ambulatory DVT prophylaxis: Lovenox 40 mg subcu daily The patient is admitted with an anticipated less than 2 midnight stay for evaluation of right shoulder pain rule out ACS CODE STATUS: Full code Discussed with: Patient Anticipated discharge place: Home Attestation I have seen and examined this patient with my resident , discussed the same with the resident/MISAEL, and agree with the dictator's assessment and plan as written Dr. Taiwo ali Past Medical History Past Medical History: Diabetes Mellitus, Hypertension, Myocardial Infarction ([place]), Thyroid Disorder Last Myocardial Infarction Date:: 2012 History of Any Multi-Drug Resistant Organisms: None Reported Past Surgical History: Coronary Bypass/CABG, Heart Catheterization With Stent, Hysterectomy, Tonsillectomy Additional Past Surgical History / Comment(s): CABG X3 2014 Past Anesthesia/Blood Transfusion Reactions: No Reported Reaction Date of Last Stent Placement:: 2012 Past Psychological History: No Psychological Hx Reported Smoking Status: Former smoker Past Alcohol Use History: Occasional Past Drug Use History: None Reported - Past Family History Mother Family Medical History: Coronary Artery Disease (CAD), Myocardial Infarction ([place]) Father Family Medical History: No Reported History Sister(s) Family Medical History: No Reported History Brother(s) Family Medical History: No Reported History Son(s) Family Medical History: No Reported History Medications and Allergies Home Medications Medication Instructions Recorded Confirmed Type Aspirin 81 mg PO DAILY 04/01/15 09/26/24 History Metoprolol Tartrate [Lopressor] 25 mg PO BID 04/01/15 09/26/24 History Atorvastatin Calcium [Lipitor] 80 mg PO HS 02/09/17 09/26/24 History Ascorbic Acid [Vitamin C] 1,000 mg PO DAILY 09/26/24 09/26/24 History Cholecalciferol [Vitamin D3 (25 100 mcg PO DAILY 09/26/24 09/26/24 History Mcg = 1000 Iu)] Fenofibrate [Lofibra] 160 mg PO DAILY 09/26/24 09/26/24 History Insulin Glargine/Lixisenatide 40 units SQ DAILY 09/26/24 09/26/24 History [Soliqua 100 Unit-33 Mcg/ml Pen] Levothyroxine Sodium [Synthroid] 112 mcg PO DAILY 09/26/24 09/26/24 History Losartan/Hydrochlorothiazide 1 tab PO DAILY 09/26/24 09/26/24 History [Hyzaar 100-25 Tablet] Turmeric Root Extract [Turmeric] 500 mg PO BID PRN 09/26/24 09/26/24 History Zinc 15mg 1 tab PO DAILY 09/26/24 09/26/24 History Ketorolac [Toradol] 10 mg PO Q6HR PRN #28 tab 09/27/24 Rx Lidocaine 5% Patch [Lidoderm 5% 1 patch TOPICAL DAILY 7 Days #7 09/27/24 Rx Patch] patch methocarbamoL [Robaxin] 500 mg PO TID PRN #21 tab 09/27/24 Rx Allergies Allergy/AdvReac Type Severity Reaction Status Date / Time erythromycin base Allergy Rash/Hives Verified 09/26/24 15:01 Sulfa (Sulfonamide Allergy Rash/Hives Verified 09/26/24 15:01 Antibiotics) Physical Exam Vitals: Vital Signs Temp Pulse Pulse Resp BP BP BP 09/27/24 07:00 97.6 F 65 16 145/60 09/27/24 02:00 97.7 F 67 17 143/73 09/26/24 21:47 67 17 132/70 09/26/24 20:00 98.1 F 78 17 138/75 09/26/24 17:17 60 18 175/67 09/26/24 15:14 61 16 161/77 09/26/24 14:13 75 16 177/79 09/26/24 13:13 75 20 170/70 09/26/24 13:09 97.4 F L 79 16 215/89 Pulse Ox 09/27/24 07:00 99 09/27/24 02:00 98 09/26/24 21:47 98 09/26/24 20:00 95 09/26/24 17:17 98 09/26/24 15:14 96 09/26/24 14:13 09/26/24 13:13 98 09/26/24 13:09 97 Intake and Output 09/26/24 09/27/24 09/27/24 22:59 06:59 14:59 Other: Voiding Method Toilet # Voids 1 2 Weight 65.771 kg Results CBC & Chem 7: 09/27/24 05:18 09/27/24 05:18 Labs: Abnormal Lab Results - Last 24 Hours (Table) 09/26/24 09/27/24 09/27/24 Range/Units 13:23 05:18 05:18 MCHC 30.6 L (32.0-37.0) g/dL Eosinophils # 0.46 H (0.04-0.35) X 10*3/uL Carbon Dioxide 31 H (22-30) mmol/L Est GFR (CKD-EPI) 57 L (>=60) BUN/Creatinine Ratio 20.91 H (12.00-20.00) Ratio Glucose 173 H (74-99) mg/dL Calcium 10.8 H (8.4-10.2) mg/dL Total Bilirubin <0.2 L (0.3-1.2) mg/dL Total Protein 8.3 H (6.3-8.2) g/dL Albumin/Globulin Ratio 1.33 L (1.60-3.17) Ratio Thrombosis Risk Factor Assmnt - Choose All That Apply Any of the Below Risk Factors Present?: Yes Each Factor Represents 1 point: Obesity (BMI >25) Each Risk Factor Represents 2 Points: Age 61-74 years Thrombosis Risk Factor Assessment Total Risk Factor Score: 3 Thrombosis Risk Factor Assessment Level: Moderate Risk
--- NOTE | 2024-09-27 13:41 | P.DS ---
Providers Date of admission: 09/26/24 17:21 Expected date of discharge: 09/27/24 Attending physician: Precious Burciaga Consults: 09/26/24 17:18 Consult Physician Routine Consulting Provider: [facility] Consult Reason/Comments: scapular pain, hx of CABG with similar symptoms Do you want consulting provider notified?: Yes Primary care physician: Delfin Restrepo [facility] Course: Discharge diagnosis Chest pain, acute coronary syndrome ruled out Musculoskeletal pain History of coronary artery disease History of CABG Hypertension Diabetes mellitus Hospital course: Patient is a 59-year-old female with diabetes mellitus, hypertension, history of CABG, coronary artery disease with heart cath with stent, history of [place] (last 1 in 2012) presented to the emergency department with right shoulder pain. Patient states that it originates in the scapula and causes tingling into right upper extremity. Patient visited an urgent care yesterday and had a chest x-ray which was found to be unremarkable and she was then discharged. Patient was seen at bedside. She reported home Monday she woke up with right shoulder pain along with tingling and numbness into her right forearm and fingertips. She currently endorses an 10 out of 10 pain in severity. Patient denies any chest pain, shortness of breath, chest cavity tenderness to palpation, nausea, vomiting, belly pain, diarrhea, constipation, lower extremity swelling. In the ED patient was treated with aspirin 324 mg p.o. x 1, Toradol 15 mg IV x 1, lidocaine patch, morphine sulfate 4 mg IV x 1. Vitals on admission temperature 97.6, pulse rate of 65, respiratory rate 16, blood pressure 145/60, O2 sat 99% on room air. EKG independently interpreted as sinus bradycardia with first-degree AV block with a ventricular rate of 56 bpm, QTc 445 ms. CXR shows no acute cardiopulmonary disease/process. Shoulder x-ray no acute osseous pathology. Mild shoulder osteoarthrosis. Spinous tendon seen on 1 view. Rotator cuff tendinopathy suggested. Chest/abdomen CTA no suspicious aortic dissection or aneurysm of the thoracic or abdominal aorta. Thyromegaly. Upper extremity CTA shows no suspicious abnormality to account for right arm pain. No suspicious arterial dissection or aneurysm within the [id number]. Labs on admission show WBC 8.35, hemoglobin 12.3, hematocrit 40.2, platelet 376, PT 11.3, INR 1.0, PTT 23.2, sodium 139, potassium 4.0, chloride 103, carbon dioxide 24.2, BUN 23, creatinine 1.1, glucose 75, troponin less than 0.012. Patient was seen on 09/27/2024 with slightly improved right shoulder pain. Cardiology was consulted and recommended no further workup as an inpatient and follow-up as an outpatient. Lidocaine 5% patch, ketorolac 10 mg p.o. every 6 hours as needed, methocarbamol 500 mg p.o. 3 times daily as needed have been prescribed. The rest of patient's home medications have been continued. Recommend patient to follow-up with primary care physician in 1 to 2 days after discharge. Recommended outpatient orthopedic follow-up for right shoulder pain likely as a result of rotator cuff tendinopathy or peripheral neuropathy. Patient is medically stable to be discharged back home. Physical examination at discharge: General: nontoxic, no distress, appears at stated age Derm: warm, dry, intact Head: atraumatic, normocephalic, symmetric Eyes: EOMI, anicteric sclera Mouth: no lip lesion, mucus membranes moist Cardiovascular: S1 S2 reg, no murmur Lungs: CTA bilateral, no rhonchi, no rales, no accessory muscle use Abdominal: soft, non-tender to palpation Extremities: No cyanosis, clubbing, or pedal edema. Right scapula, shoulder, elbow tender to palpation. No signs of swelling, erythema, discoloration in right arm. Neuro: Alert, Oriented, Gross neurological examination did not reveal any focal deficits. Cranial nerves 2-12 grossly intact. Bilateral upper and lower extremity muscle strength and sensation intact. Psych: well appearing, appropriate affect Attestation I have seen and examined this patient with my resident , discussed the same with the resident/MISAEL, and agree with the dictator's assessment and plan as written Dr. Taiwo tillman Patient Condition at Discharge: Stable Plan - Discharge Summary New Discharge Prescriptions: New Lidocaine 5% Patch [Lidoderm 5% Patch] 1 patch TOPICAL DAILY 7 Days #7 patch Ketorolac [Toradol] 10 mg PO Q6HR PRN #28 tab PRN Reason: Pain methocarbamoL [Robaxin] 500 mg PO TID PRN #21 tab PRN Reason: Muscle Spasm Continue Metoprolol Tartrate [Lopressor] 25 mg PO BID Aspirin 81 mg PO DAILY Atorvastatin Calcium [Lipitor] 80 mg PO HS Zinc 15mg 1 tab PO DAILY Levothyroxine Sodium [Synthroid] 112 mcg PO DAILY Fenofibrate [Lofibra] 160 mg PO DAILY Turmeric Root Extract [Turmeric] 500 mg PO BID PRN PRN Reason: Pain/Inflammation Losartan/Hydrochlorothiazide [Hyzaar 100-25 Tablet] 1 tab PO DAILY Cholecalciferol [Vitamin D3 (25 Mcg = 1000 Iu)] 100 mcg PO DAILY Ascorbic Acid [Vitamin C] 1,000 mg PO DAILY Insulin Glargine/Lixisenatide [Soliqua 100 Unit-33 Mcg/ml Pen] 40 units SQ DAILY Discharge Medication List Aspirin 81 mg PO DAILY 04/01/15 [History] Metoprolol Tartrate [Lopressor] 25 mg PO BID 04/01/15 [History] Atorvastatin Calcium [Lipitor] 80 mg PO HS 02/09/17 [History] Ascorbic Acid [Vitamin C] 1,000 mg PO DAILY 09/26/24 [History] Cholecalciferol [Vitamin D3 (25 Mcg = 1000 Iu)] 100 mcg PO DAILY 09/26/24 [History] Fenofibrate [Lofibra] 160 mg PO DAILY 09/26/24 [History] Insulin Glargine/Lixisenatide [Soliqua 100 Unit-33 Mcg/ml Pen] 40 units SQ DAILY 09/26/24 [History] Levothyroxine Sodium [Synthroid] 112 mcg PO DAILY 09/26/24 [History] Losartan/Hydrochlorothiazide [Hyzaar 100-25 Tablet] 1 tab PO DAILY 09/26/24 [History] Turmeric Root Extract [Turmeric] 500 mg PO BID PRN 09/26/24 [History] Zinc 15mg 1 tab PO DAILY 09/26/24 [History] Ketorolac [Toradol] 10 mg PO Q6HR PRN #28 tab 09/27/24 [Rx] Lidocaine 5% Patch [Lidoderm 5% Patch] 1 patch TOPICAL DAILY 7 Days #7 patch 09/27/24 [Rx] methocarbamoL [Robaxin] 500 mg PO TID PRN #21 tab 09/27/24 [Rx] Follow up Appointment(s)/Referral(s): Delfin Restrepo [Primary Care Provider] - 1-2 days Discharge Disposition: HOME SELF-CARE
== END 2024-09-27 13:50 | disposition home or self-care (01) ==
LOC: EC 13:07 → 6NMEDSUR 17:21
PROVIDERS: ADMIT Hospitalist; ATTEND Hospitalist
DX: M79.18 Myalgia, other site (principal); R07.9 Chest pain, unspecified; E11.9 Type 2 diabetes mellitus without complications; I10 Essential (primary) hypertension; E78.5 Hyperlipidemia, unspecified; I25.10 Atherosclerotic heart disease of native coronary artery without angina pectoris; E03.9 Hypothyroidism, unspecified; E55.9 Vitamin D deficiency, unspecified; I25.2 Old myocardial infarction; R94.31 Abnormal electrocardiogram [ECG] [EKG]; Z87.891 Personal history of nicotine dependence; Z95.5 Presence of coronary angioplasty implant and graft; Z79.4 Long term (current) use of insulin; Z79.82 Long term (current) use of aspirin; Z79.890 Hormone replacement therapy; Z79.899 Other long term (current) drug therapy; Z88.1 Allergy status to other antibiotic agents; Z88.2 Allergy status to sulfonamides
CPT/HCPCS: 96376 ×2; 96372 ×2; 96374 ×2; 96375; 99285; 36415; 93005; 85379; 80053 ×2; 83735; 84484; 85025 ×2; 85610; 85730; 73030; 71046; 71275; 74175; 73206; G0378 ×2; J2270 ×2; J1644 ×2; J1885 ×2; Q9967

== ENCOUNTER → 2024-12-18 | Outpatient (CLI) | payer BC ==
--- NOTE | 2024-12-18 12:43 | CT ---
EXAMINATION TYPE: CT cervical spine wo con CT DLP: 380.7 mGycm, Automated exposure control for dose reduction was used. DATE OF EXAM: 12/18/2024 11:38 AM COMPARISON: None. CLINICAL INDICATION:Female, 59 years old with history of M54.2 CERVICALGIA; PHH, neck pain, no injury , pain TECHNIQUE: Axial CT images from the skull base to the inferior aspect of T2 we obtained without intra venous contrast. Coronal and sagittal reformatted images were also reviewed. FINDINGS: Fracture: None. Osseous structures: Disc space narrowing with endplate sclerosis and osteophyte formation involving C 5-C6 and C6-C7. Vertebral alignment: Mild degenerative retrolisthesis of C5 on C6. Spinal canal/Neural Foramina: No significant central canal neural foraminal stenosis at C2-C3, C3-C4 and C4-C5. Posterior disc osteophyte complex with mild central canal stenosis at C5-C6. Uncovertebral joint hype rtrophy demonstrated. Moderate to severe bilateral neural foraminal stenosis at this level. Posterior disc osteophyte complex with mild central canal stenosis at C6-C7. Uncovertebral joint hype rtrophy resulting in moderate to severe bilateral neural foraminal stenosis at this level. Right foraminal zone disc protrusion at C7-T1 suggested with moderate to severe right neural foramina l stenosis. Uncovertebral joint hypertrophy. No significant central canal stenosis. Moderate left cee ral foraminal stenosis. Neck soft tissues: Prevertebral soft tissues are within normal limits. Other: The airway is patent. The lung apices are clear. Atherosclerotic calcification of the carotid portions of the bilateral internal carotid arteries. Moderate bilateral carotid bulb calcifications. Asymmetrically larger right thyroid lobe compared to the left. Atherosclerotic calcification of the v isualized aorta and its branches. Partial visualization of the surrounding wires. IMPRESSION: 1. No evidence of cervical spine fracture. 2. Moderate multilevel degenerative disc disease and osteoarthritic change of the lower cervical spin e is described above. Consider further evaluation with MRI as clinically indicated. [facility], , 12/18/2024 12:41 PM
== END | disposition home or self-care (01) ==
LOC: RADCTMAIN 10:48
PROVIDERS: ATTEND Orthopaedic Surgery Orthopaedic Surgery of the Spine
DX: M48.02 Spinal stenosis, cervical region (principal); M50.23 Other cervical disc displacement, cervicothoracic region; M50.30 Other cervical disc degeneration, unspecified cervical region
CPT/HCPCS: 72125